=== PATIENT | male | born 1955 | race African-American/Black ===

== ENCOUNTER 2024-04-02 14:42 | Emergency (ER) | payer OTHER ==
[~2024-04-02] VITALS: Ht 172.7 cm; Wt 107.0 kg
[2024-04-02 14:46] VITALS: O2SAT 97
[2024-04-02] MEDS: KETOROLAC 30MG/ML VIAL IM ONE (15:46)
[2024-04-02 15:56] LABS: BASOPHILS % 0.7 % (0.0-2.0); EOSINOPHILS % 7.1 % (0.0-5.0); HEMATOCRIT. 44.4 % (42.0-52.0); HEMOGLOBIN. 14.7 g/dL (14.0-18.0); LYMPHOCYTES % 26.1 % (20.0-50.0); MEAN CORPUSCULAR HEMOGLOBIN 30.9 pg (28.0-32.0); MEAN CORPUSCULAR HGB CONC 33.2 g/dL (31.0-37.0); MEAN CORPUSCULAR VOLUME 93.1 fL (80.0-94.0); MEAN PLATELET VOLUME 7.6 fl (7.4-10.4); MONOCYTES % 8.2 % (2.0-8.0); NEUTROPHILS % 57.9 % (40.0-76.0); PLATELET 336 x1000/uL (130-400); RED BLOOD CELL COUNT 4.77 mill/uL (4.7-6.1); RED CELL DISTRIBUTION WIDTH 14.3 % (11.6-14.6); WHITE BLOOD COUNT 8.8 x1000/uL (4.5-11.0)
[2024-04-02 15:59] LABS: CHLORIDE 104 mEq/L (98-107); POTASSIUM 5.2 mEq/L (3.5-5.1); SODIUM 138 mEq/L (136-145)
[2024-04-02 16:00] LABS: CARBON DIOXIDE 26 mEq/L (21-32)
[2024-04-02 16:01] LABS: CALCIUM 9.9 mg/dL (8.7-10.4)
[2024-04-02 16:05] LABS: CREATININE 1.7 mg/dL (0.6-1.3); GLUCOSE 76 mg/dL (70-105); UREA NITROGEN BLOOD 24 mg/dL (9-23)
[2024-04-02 16:07] LABS: ALANINE AMINOTRANSFERASE 32 IU/L (10-49); ALBUMIN 4.9 g/dL (3.2-4.8); ASPARTATE AMINOTRANSFERASE 23 IU/L (<34)
[2024-04-02 16:08] LABS: BILIRUBIN TOTAL 0.6 mg/dL (0.1-1.0); PROTEIN TOTAL 8.1 g/dL (6.0-8.3)
[2024-04-02 17:33] VITALS: BP 158/89; PULSE 90; RESP 16; TEMP 98.1
== END 2024-04-02 17:28 | disposition left against medical advice (07) ==
LOC: ER 14:42
DX: M54.50 Low back pain, unspecified (principal); M54.2 Cervicalgia; N17.9 Acute kidney failure, unspecified; E78.00 Pure hypercholesterolemia, unspecified; I10 Essential (primary) hypertension
CPT/HCPCS: 99285; 72125; 80053; 85025; 36415; 72128; 72131; 72192; 96372; J1885